=== PATIENT | female | born 1975 | race Caucasian/White ===

== ENCOUNTER 2025-03-25 15:02 | Emergency (ER) | payer BC ==
[~2025-03-25] VITALS: Ht 162.6 cm; Wt 75.9 kg
[2025-03-25 15:04] VITALS: BP 142/90; PULSE 89; RESP 16; TEMP 98.9; O2SAT 98
--- NOTE | 2025-03-25 15:09 | Physician Documentation ---
History of Present Illness ~ Stated Complaint: WORK NOTE/FLU SYMPTOMS Time Seen by MD: 15:09 [facility] Female presents to the ED with flu-like symptoms for the last three days. She states she has missed two days of work and is going to need to miss a 3rd and her work is requiring that she gets a doctor's note. She is taking OTC remedies to help with her symptoms in his resting as she should be. denies Any recent medical history Medication Reconciliation Allergies: Coded Allergies: No Known Allergies (Unverified , 03/25/25) Review of Systems All Other Systems at this time: Reviewed and Negative ROS As stated above in the HPI, otherwise all systems are reviewed and negative. Physical Exam Physical Exam General: Alert, no apparent distress. . Respiratory: Lungs clear, no respiratory distress. Cardiovascular: Regular rate and rhythm, no murmurs. Gastrointestinal: Soft, nontender, nondistended. Bowels sounds present. Neurologic: Oriented x4. Psychiatric: Normal mood and affect. Skin: Normal color, warm and dry. No edema, no ecchymosis. Progress Results/Orders Results/Orders Vital Signs 03/25/25 15:04 Temp 98.9 Pulse 89 Resp 16 B/P (MAP) 142/90 Pulse Ox 98 O2 Flow Rate 0 Medical Decision Making Differential Dx:Considerations: Include: Allergic rhinitis, Influenza, Otitis media, Peritonsillar abscess, Pharyngitis-Diphtheria, Pharyngitis-Streptoccal, Pharyngitis-Viral, Pneumonia, Pnuemonitis, Sinusitis, URI, Other Departure Disposition: 01 HOME / SELF CARE / HOMELESS Impression: Primary Impression: Cough Condition: Stable Discharge Instructions: Cough, Adult Departure Forms: Excuse form Work or School Excused From: Work Excuse beginning now through the following date: March 28, 2025 May Return but still avoid physical Activity from now until: March 27, 2025 May Return to full physical activity as of: March 28, 2025 Referrals: NO PRIMARY CARE PROVIDER (PCP) Signature Scribe Signature: radha Attestation: The note accurately reflects work and decisions made by me.Hector Chaney - MORAIMA 03/25/25 15:09 HECTOR CHANEY NP March 25, 2025 15:09
== END 2025-03-25 16:42 | disposition home or self-care (01) ==
LOC: ER 15:03
DX: R05.9 Cough, unspecified (principal)
CPT/HCPCS: 99281